=== PATIENT | male | born 1975 | race Caucasian/White ===

== ENCOUNTER 2022-05-19 08:31 | Inpatient (IN) | payer OTHER ==
[2022-05-19] MEDS ORDERED: MAGNESIUM CITRATE 300 ML BOTTLE PO PRN (09:15)
[2022-05-19] MEDS ORDERED: cloNIDine HCL 0.1 MG TABLET PO PRN (09:15)
[2022-05-19] MEDS ORDERED: ONDANSETRON *ODT* 4 MG TABLET SL PRN (09:15)
[2022-05-19] MEDS ORDERED: BENZOCAINE/MENTHOL (CHLORASEPTIC ) LOZENGE MM PRN (09:15)
[2022-05-19] MEDS ORDERED: IBUPROFEN 400 MG TABLET (FP) PO PRN (09:15)
[2022-05-19] MEDS ORDERED: NICOTINE 10 MG CARTRIDGE (INHALER) IH PRN (09:15)
[2022-05-19] MEDS ORDERED: BISMUTH SUBSALICYLATE 524 MG/30 ML PO PRN (09:15)
[2022-05-19] MEDS ORDERED: MAGNESIUM HYDROX 2400MG/30ML ORAL SUSPENSION 30 ML CUP PO PRN (09:15)
[2022-05-19] MEDS ORDERED: ACETAMINOPHEN 325 MG TABLET (FP) PO PRN (09:15)
[2022-05-19] MEDS ORDERED: DICYCLOMINE HCL 10 MG CAPSULE PO PRN (09:15)
[2022-05-19] MEDS ORDERED: LOPERAMIDE HCL 2 MG CAPSULE PO PRN (09:15)
[2022-05-19] MEDS ORDERED: chlordiazePOXIDE HCL 25 MG CAPSULE PO PRN (09:15)
[2022-05-19] MEDS ORDERED: MAG HYDROX/AL HYDROX/SIMETH 30 ML UNIT-DOSE CUP PO PRN (09:15)
[2022-05-19] MEDS ORDERED: methaDONE HCL 10 MG TABLET (FOR DETOX USE ONLY) ONE (09:53)
[2022-05-19] MEDS ORDERED: hydrOXYzine PAMOATE 25 MG CAPSULE (FP) PO SCH (10:00)
[2022-05-19] MEDS: chlordiazePOXIDE HCL 25 MG CAPSULE PO SCH ×3 (10:28→23:12)
[2022-05-19] MEDS: PRENATAL VITAMINS W/ FOLIC ACID TABLET (FP) PO SCH (15:32)
[2022-05-19] MEDS: IBUPROFEN 600 MG TABLET (FP) PO PRN (18:28)
[2022-05-19] MEDS: MELATONIN 5 MG TABLETS PO SCH (23:11)
[2022-05-19] MEDS: THIAMINE HCL 100 MG TABLET (FP) PO SCH (23:12)
[2022-05-20] MEDS: chlordiazePOXIDE HCL 25 MG CAPSULE PO SCH ×4 (06:06→23:51)
[2022-05-20] MEDS ORDERED: methaDONE HCL 10 MG TABLET (FOR DETOX USE ONLY) PO ONE ×2 (10:00→12:59)
[2022-05-20] MEDS: IBUPROFEN 600 MG TABLET (FP) PO PRN (12:13)
[2022-05-20] MEDS: METHOCARBAMOL 500 MG TABLET PO PRN (12:13)
[2022-05-20] MEDS: PRENATAL VITAMINS W/ FOLIC ACID TABLET (FP) PO SCH (12:15)
[2022-05-20] MEDS: MELATONIN 5 MG TABLETS PO SCH (23:51)
[2022-05-20] MEDS: THIAMINE HCL 100 MG TABLET (FP) PO SCH (23:51)
[2022-05-21] MEDS: chlordiazePOXIDE HCL 25 MG CAPSULE PO SCH ×4 (06:04→23:23)
[2022-05-21] MEDS: METHOCARBAMOL 500 MG TABLET PO PRN ×2 (08:27→17:53)
[2022-05-21] MEDS ORDERED: methaDONE HCL 10 MG TABLET (FOR DETOX USE ONLY) PO ONE (10:00)
[2022-05-21] MEDS: PRENATAL VITAMINS W/ FOLIC ACID TABLET (FP) PO SCH (10:35)
[2022-05-21] MEDS: IBUPROFEN 600 MG TABLET (FP) PO PRN (17:52)
[2022-05-21] MEDS: THIAMINE HCL 100 MG TABLET (FP) PO SCH (23:23)
[2022-05-21] MEDS: MELATONIN 5 MG TABLETS PO SCH (23:23)
[2022-05-22] MEDS ORDERED: chlordiazePOXIDE HCL 10 MG CAPSULE PO PRN
[2022-05-22] MEDS: chlordiazePOXIDE HCL 10 MG CAPSULE PO SCH ×4 (05:34→23:29)
[2022-05-22] MEDS: METHOCARBAMOL 500 MG TABLET PO PRN (07:47)
[2022-05-22] MEDS: IBUPROFEN 600 MG TABLET (FP) PO PRN (08:54)
[2022-05-22] MEDS: ACETAMINOPHEN 325 MG TABLET (FP) PO PRN (09:29)
[2022-05-22] MEDS: PRENATAL VITAMINS W/ FOLIC ACID TABLET (FP) PO SCH (09:33)
[2022-05-22] MEDS ORDERED: methaDONE HCL 10 MG TABLET (FOR DETOX USE ONLY) PO ONE (10:00)
[2022-05-22] MEDS: LIDOCAINE 5% TOPICAL PATCH TP SCH (14:51)
[2022-05-22] MEDS: LIDOCAINE PATCH REMOVAL MC SCH (23:29)
[2022-05-22] MEDS: MELATONIN 5 MG TABLETS PO SCH (23:30)
[2022-05-22] MEDS: THIAMINE HCL 100 MG TABLET (FP) PO SCH (23:30)
[2022-05-23] MEDS: chlordiazePOXIDE HCL 10 MG CAPSULE PO SCH ×2 (06:19→18:09)
[2022-05-23] MEDS ORDERED: methaDONE HCL 10 MG TABLET (FOR DETOX USE ONLY) PO ONE (10:00)
[2022-05-23] MEDS: PRENATAL VITAMINS W/ FOLIC ACID TABLET (FP) PO SCH (10:22)
[2022-05-23] MEDS: LIDOCAINE 5% TOPICAL PATCH TP SCH (10:23)
[2022-05-23] MEDS: METHOCARBAMOL 500 MG TABLET PO PRN (18:09)
[2022-05-23] MEDS: ACETAMINOPHEN 325 MG TABLET (FP) PO PRN (18:09)
[2022-05-23] MEDS: LIDOCAINE PATCH REMOVAL MC SCH (22:56)
[2022-05-23] MEDS: MELATONIN 5 MG TABLETS PO SCH (22:56)
[2022-05-23] MEDS: THIAMINE HCL 100 MG TABLET (FP) PO SCH (23:06)
[2022-05-24] MEDS ORDERED: chlordiazePOXIDE HCL 10 MG CAPSULE PO ONE (05:00)
[2022-05-24] MEDS: PRENATAL VITAMINS W/ FOLIC ACID TABLET (FP) PO SCH (09:05)
[2022-05-24] MEDS: LIDOCAINE 5% TOPICAL PATCH TP SCH (09:05)
[2022-05-24 09:37] VITALS: BP 117/80; PULSE 71; RESP 18; TEMP 98.2
== END 2022-05-24 10:05 | disposition home or self-care (01) | DRG 773 ==
LOC: YASAS 08:31 → Y6N 11:56
PROVIDERS: ADMIT Allergy & Immunology; ATTEND Surgery
PROC: HZ2ZZZZ Detoxification Services for Substance Abuse Treatment (ICD-10-PCS; principal; 2022-05-19)
DX: F11.23 Opioid dependence with withdrawal (principal); F10.230 Alcohol dependence with withdrawal, uncomplicated; F14.20 Cocaine dependence, uncomplicated; F17.213 Nicotine dependence, cigarettes, with withdrawal; F41.9 Anxiety disorder, unspecified; F34.1 Dysthymic disorder; F19.24 Other psychoactive substance dependence with psychoactive substance-induced mood disorder; F19.282 Other psychoactive substance dependence with psychoactive substance-induced sleep disorder; F19.280 Other psychoactive substance dependence with psychoactive substance-induced anxiety disorder; B18.2 Chronic viral hepatitis C; M79.671 Pain in right foot
CPT/HCPCS: 36415; 73610-TC-RT-FY; 73630-TC-RT-FY; 80053; 85027; 86780; C9803-CS; U0003; U0005